=== PATIENT | male | born 1990 | race Caucasian/White ===

== ENCOUNTER 2017-03-01 03:19 | Emergency (ER) | payer MEDICARE, OTHER ==
[~2017-03-01] VITALS: Ht 177.8 cm; Wt 88.0 kg
[~2017-03-01 03:19] MED LIST: BACTDS PO; BEN25 PO; DICL75TA2 PO; DIPH-437 PO; EPIN0.3P4 INJ; HYDR-906 PO; IBUP-1542 PO; LISI10TA2 PO; PRED20TA PO
[2017-03-01 03:22] VITALS: Ht 177.8 cm; Wt 88.0 kg
[2017-03-01] MEDS ORDERED: QUET100T PO (06:22)
[2017-03-01] MEDS ORDERED: ATOM25CA3 PO (06:23)
[2017-03-01] MEDS ORDERED: GABA100C14 PO (06:24)
--- NOTE | 2017-03-01 06:45 | ERD ---
ER Documentation Chief Complaint Date/Time DATE: 03/01/17 TIME: 06:43 Chief Complaint med refill-seroquell HPI This is a 26-year-old male presents to the ER for medication refill. Patient states that he currently sees mental health however he has not been able to go in secondary to his work schedule. Patient states that he takes Seroquel, Strattera, gabapentin. Patient denies any suicidal ideations. He denies any homicidal ideations. Patient is asymptomatic otherwise. ROS 12 point review of systems was done, all negative except per HPI. Medications Home Meds Active Scripts Gabapentin* (Gabapentin*) 100 Mg Capsule, 100 MG PO BID, #60 CAP Prov:SHANAELEONOR C 03/01/17 Atomoxetine Hcl (Strattera) 25 Mg Capsule, 25 MG PO QHS, #15 CAP Prov:SHANAELEONOR C 03/01/17 Quetiapine Fumarate* (Seroquel*) 100 Mg Tablet, 100 MG PO QHS, #30 TAB Prov:XIAO JOLLYNA C 03/01/17 Sulfamethoxazole-Trimethoprim* (Bactrim* DS) 800-160 Mg Tab, 1 TAB PO BID for 5 Days, TAB Prov:TODD NUNEZ NP 10/13/16 Hydrocodone/Acetaminophen ([place] 5-325 Tablet) 1 Each Tablet, 1 TAB PO Q6H Y for PAIN, #20 TAB Prov:TODD NUNEZ NP 10/13/16 Ibuprofen* (Motrin*) 600 Mg Tab, 600 MG PO Q6H Y for PAIN AND OR ELEVATED TEMP, #30 TAB Prov:TODD NUNEZ NP 10/13/16 Diphenhydramine Hcl* (Benadryl*) 25 Mg Cap, 25 MG PO Q6, #30 CAP Prov:KAM LUIS MD 08/20/16 Prednisone* (Prednisone*) 20 Mg Tab, 60 MG PO DAILY for 4 Days, TAB Prov:KAM LUIS MD 08/20/16 Epinephrine (Epipen 2-Sam) 0.3 Mg/0.3 Ml Pen.injctr, 1 EA INJ ONCE Y for ALLERGIC REACTION, #1 EA Prov:KAM LUIS MD 08/20/16 Reported Medications Diphenhydramine Hcl* (Sleep Aid*) 25 Mg Tablet, 25 MG PO HS Y for SLEEP, TAB 08/20/16 Diclofenac Sodium* (Diclofenac Sodium*) 75 Mg Tablet.dr, 75 MG PO BID Y for PRN , #60 TAB 08/20/16 Lisinopril* (Lisinopril*) 10 Mg Tablet, 10 MG PO DAILY, #30 TAB 08/20/16 Allergies Allergies: Coded Allergies: phenobarbital (Verified Allergy, Intermediate, RASH, SWELLING, ANXIOUS, ) amoxicillin (Verified Allergy, Unknown, 08/20/16) Uncoded Allergies: all barbituates (Allergy, Intermediate, rashes/swelling, 12/17/13) PMhx/Soc History of Surgery: No Anesthesia Reaction: No Hx Neurological Disorder: No Hx Respiratory Disorders: No Hx Cardiac Disorders: No Hx Psychiatric Problems: Yes (DEPRESSION) Hx Miscellaneous Medical Probl: No Hx Alcohol Use: Yes (occasionally) Hx Substance Use: No Hx Tobacco Use: Yes (quit) Smoking Status: Light tobacco smoker Physical Exam Vitals Vital Signs Date Time Temp Pulse Resp B/P Pulse Ox O2 Delivery O2 Flow Rate FiO2 03/01/17 03:22 97.6 82 20 122/61 98 Physical Exam GENERAL: The patient is well developed and appropriate for usual state of health , in no apparent distress. HEENT: Atraumatic. CHEST: Clear to auscultation bilaterally. There are no rales, wheezes or rhonchi. HEART: Regular rate and rhythm. No murmurs, clicks, rubs or gallops. NEURO: Alert and oriented. SKIN: There is no apparent rash or petechia. The skin is warm and dry. Procedures/MDM This is a 26-year-old male presents to the ER for medication refill. At this time patient is asymptomatic otherwise. Patient does have a past medical history of bipolar disorder, depression, ADHD. At this time patient does not have any suicidal or homicidal ideations is extremely well-appearing. Patient is stable for outpatient follow-up. He needs to follow-up with his primary care doctor and see psych as soon as possible. My medical decision making was shared with the patient patient can return to ER sooner if symptoms worsen. Patient understands and agrees with plan. Departure Diagnosis: Primary Impression: Encounter for medication refill Condition: Stable Patient Instructions: Taking Medicine Safely Additional Instructions: Call your primary care doctor TOMORROW for an appointment during the next 1-2 days.See the doctor sooner or return here if your condition worsens before your appointment time. LEONOR JOLLY Mar 01, 2017 06:45
== END 2017-03-01 06:46 | disposition home or self-care (01) ==
LOC: FTE 03:19
DX: Z76.0 Encounter for issue of repeat prescription (principal); F17.210 Nicotine dependence, cigarettes, uncomplicated
CPT/HCPCS: 99281

== ENCOUNTER 2017-04-20 21:51 | Emergency (ER) | payer MEDICARE, OTHER ==
[~2017-04-20] VITALS: Ht 180.3 cm; Wt 85.5 kg
[~2017-04-20 21:51] MED LIST changes: +ATOM25CA3 PO; +GABA100C14 PO; +QUET100T PO
[2017-04-20 21:58] VITALS: Ht 180.3 cm; Wt 85.5 kg
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
--- NOTE | 2017-04-21 03:27 | RADRPT ---
PROCEDURE: Noncontrast CT Head. CLINICAL INDICATION: Trauma. TECHNIQUE: Noncontrast CT of the head was obtained. The administered radiation dose was CTDI vol = 45 mGy, DLP = 720 mGy-cm. COMPARISON: No pertinent prior examinations were submitted for comparison. FINDINGS: The ventricles and sulci are within normal limits. There is no acute intracranial hemorrhage or ext ra-axial fluid collection. There is no mass effect. No midline shift is identified. There is no loss of ambrosio-white differentiation to suggest acute infarction. The orbits are within normal limits. The paranasal sinuses and mastoid air cells are without fluid. No destructive osseous lesion is identified. IMPRESSION: No acute findings. RPTAT: HIKT .Miky Spann MD, MD Date Time Electronically viewed and signed by .Miky Spann MD, on 04/21/2017 03:26 .T/
[2017-04-21] MEDS ORDERED: CARI350T PO (03:44)
[2017-04-21] MEDS ORDERED: HYDR-906 PO (03:44)
[2017-04-21 04:29] VITALS: BP 135/86; PULSE 62; RESP 16
== END 2017-04-21 04:23 | disposition home or self-care (01) ==
LOC: FTE 21:51
DX: S00.01XA Abrasion of scalp, initial encounter (principal); S06.0X1A Concussion with loss of consciousness of 30 minutes or less, initial encounter; Y08.89XA Assault by other specified means, initial encounter; Z87.891 Personal history of nicotine dependence
CPT/HCPCS: 70450

== ENCOUNTER 2017-06-27 18:37 | Emergency (ER) | payer MEDICARE, OTHER ==
[~2017-06-27] VITALS: Ht 177.8 cm; Wt 85.0 kg
[~2017-06-27 18:37] MED LIST changes: +CARI350T PO
[2017-06-27 18:43] VITALS: Ht 177.8 cm; Wt 85.0 kg
[2017-06-27] MEDS ORDERED: LORAZEPAM 2 MG INJ IM ONE (19:00)
[2017-06-27] MEDS ORDERED: HALOPERIDOL 5 MG INJ IM ONE (19:00)
[2017-06-27 19:22] LABS: BASOPHILS % 0.5 % (0.0-2.0); EOSINOPHILS # 0.4 10^3/ul (0.0-0.5); EOSINOPHILS % 5.8 % (0.0-7.0); HEMATOCRIT 41.2 % (42.0-52.0); HEMOGLOBIN 14.8 g/dl (14.0-18.0); LYMPHOCYTES # 1.7 10^3/ul (0.8-2.9); LYMPHOCYTES % 21.9 % (15.0-51.0); MEAN CORPUSCULAR HEMOGLOBIN 30.8 pg (29.0-33.0); MEAN CORPUSCULAR HGB CONC 35.9 g/dl (32.0-37.0); MEAN CORPUSCULAR VOLUME 85.7 fl (82.0-101.0); MEAN PLATELET VOLUME 9.7 fl (7.4-10.4); MONOCYTE # 0.6 10^3/ul (0.3-0.9); MONOCYTES % 7.5 % (0.0-11.0); NEUTROPHIL # 4.8 10^3/ul (1.6-7.5); NEUTROPHILS % 63.8 % (39.0-77.0); PLATELET COUNT 293 10^3/UL (140-415); RED BLOOD COUNT 4.81 10^6/ul (4.70-6.10); RED CELL DISTRIBUTION WIDTH 11.8 % (11.5-14.5); WHITE BLOOD COUNT 7.6 10^3/ul (4.8-10.8)
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
[2017-06-27 19:46] LABS: ALANINE AMINOTRANSFERASE 52 IU/L (13-69); ALBUMIN 4.7 g/dl (3.3-4.9); ALBUMIN/GLOBULIN RATIO 1.42; ALKALINE PHOSPHATASE 84 IU/L (42-121); ANION GAP 23 (8-16); ASPARTATE AMINO TRANSFERASE 52 IU/L (15-46); BILIRUBIN,INDIRECT 0.5 mg/dl (0-1.1); BILIRUBIN,TOTAL 0.5 mg/dl (0.2-1.3); BLOOD UREA NITROGEN 11 mg/dl (7-20); CALCIUM 9.5 mg/dl (8.4-10.2); CARBON DIOXIDE 23 mmol/L (21-31); CHLORIDE 104 mmol/L (97-110); CREATININE 1.14 mg/dl (0.61-1.24); GLUCOSE 89 mg/dl (70-220); POTASSIUM 3.5 mmol/L (3.5-5.1); SODIUM 146 mmol/L (135-144)
[2017-06-27 19:54] LABS: ACETAMINOPHEN < 10.0 ug/ml (10.0-30.0); SALICYLATE < 1.0 mg/dl (5.0-30.0)
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
[2017-06-28 01:00] VITALS: BP 134/74; PULSE 74; RESP 16; TEMP 98.4
== END 2017-06-28 01:00 ==
LOC: E/R 18:37
DX: F29 Unspecified psychosis not due to a substance or known physiological condition (principal); S00.81XA Abrasion of other part of head, initial encounter; S60.511A Abrasion of right hand, initial encounter; S60.512A Abrasion of left hand, initial encounter; F17.210 Nicotine dependence, cigarettes, uncomplicated; X78.1XXA Intentional self-harm by knife, initial encounter; Y92.9 Unspecified place or not applicable
CPT/HCPCS: 80053; 80178; 80306; 85025; 96372; 99291; J1630; J2060

== ENCOUNTER 2017-11-04 03:21 | Emergency (ER) | payer MEDICARE, OTHER ==
[~2017-11-04] VITALS: Ht 180.3 cm; Wt 82.2 kg
[2017-11-04 03:26] VITALS: Ht 180.3 cm; Wt 82.2 kg
[2017-11-04 03:41] VITALS: BP 99/61; PULSE 90; RESP 19; TEMP 97.9
[2017-11-04 04:24] LABS: BASOPHIL # 0.1 10^3/ul (0.0-0.1); BASOPHILS % 0.8 % (0.0-2.0); EOSINOPHILS # 0.8 10^3/ul (0.0-0.5); EOSINOPHILS % 12.7 % (0.0-7.0); HEMATOCRIT 36.8 % (42.0-52.0); HEMOGLOBIN 13.3 g/dl (14.0-18.0); LYMPHOCYTES # 2.3 10^3/ul (0.8-2.9); MEAN CORPUSCULAR HEMOGLOBIN 31.4 pg (29.0-33.0); MEAN CORPUSCULAR HGB CONC 36.1 g/dl (32.0-37.0); MEAN PLATELET VOLUME 9.7 fl (7.4-10.4); MONOCYTE # 0.8 10^3/ul (0.3-0.9); MONOCYTES % 11.5 % (0.0-11.0); NEUTROPHIL # 2.6 10^3/ul (1.6-7.5); NEUTROPHILS % 39.5 % (39.0-77.0); PLATELET COUNT 293 10^3/UL (140-415); RED BLOOD COUNT 4.23 10^6/ul (4.70-6.10); RED CELL DISTRIBUTION WIDTH 12.2 % (11.5-14.5); WHITE BLOOD COUNT 6.5 10^3/ul (4.8-10.8)
[2017-11-04 04:52] LABS: ALBUMIN 3.2 g/dl (3.3-4.9); ALBUMIN/GLOBULIN RATIO 1.03; BILIRUBIN,INDIRECT 0.3 mg/dl (0-1.1); BILIRUBIN,TOTAL 0.3 mg/dl (0.2-1.3); CALCIUM 8.6 mg/dl (8.4-10.2); CREATININE 0.97 mg/dl (0.61-1.24); POTASSIUM 3.6 mmol/L (3.5-5.1); TOTAL PROTEIN 6.3 g/dl (6.1-8.1)
--- NOTE | 2017-11-04 05:36 | ERD ---
ER Documentation Chief Complaint Chief Complaint seizure, witnessed per pt. cough and SOB r/t smoke HPI This is a 27-year-old male who said he had a seizure earlier today she is coughing so much from the smoke in the air. Patient has history of psychosis. He denies auditory visual hallucinations. Denies tongue biting or colitis. Denies suicidal or homicidal ideation. Patient said that seizure was 5 seconds long, tonic-clonic with no tongue biting or incontinence ROS All systems reviewed and are negative except as per history of present illness. Medications Home Meds Active Scripts Carisoprodol* (Soma*) 350 Mg Tablet, 350 MG PO TID Y for MUSCLE SPASMS, #15 TAB Prov:TODD NUNEZ NP 04/21/17 Hydrocodone/Acetaminophen ([place] 5-325 Tablet) 1 Each Tablet, 1 TAB PO Q6H Y for SEVERE PAIN LEVEL 7-10, #15 TAB Prov:TODD NUNEZ NP 04/21/17 Gabapentin* (Gabapentin*) 100 Mg Capsule, 100 MG PO BID, #60 CAP Prov:LEONOR JOLLY 03/01/17 Atomoxetine Hcl (Strattera) 25 Mg Capsule, 25 MG PO QHS, #15 CAP Prov:SHANAELEONOR ADAMS 17 Quetiapine Fumarate* (Seroquel*) 100 Mg Tablet, 100 MG PO QHS, #30 TAB Prov:LEONOR JOLLY 03/01/17 Sulfamethoxazole-Trimethoprim* (Bactrim* DS) 800-160 Mg Tab, 1 TAB PO BID for 5 Days, TAB Prov:TODD NUNEZ NP 10/13/16 Hydrocodone/Acetaminophen ([place] 5-325 Tablet) 1 Each Tablet, 1 TAB PO Q6H Y for PAIN, #20 TAB Prov:TODD NUNEZ NP 10/13/16 Ibuprofen* (Motrin*) 600 Mg Tab, 600 MG PO Q6H Y for PAIN AND OR ELEVATED TEMP, #30 TAB Prov:TODD NUNEZ NP 10/13/16 Diphenhydramine Hcl* (Benadryl*) 25 Mg Cap, 25 MG PO Q6, #30 CAP Prov:KAM LUIS MD 08/20/16 Prednisone* (Prednisone*) 20 Mg Tab, 60 MG PO DAILY for 4 Days, TAB Prov:KAM LUIS MD 08/20/16 Epinephrine (Epipen 2-Sam) 0.3 Mg/0.3 Ml Pen.injctr, 1 EA INJ ONCE Y for ALLERGIC REACTION, #1 EA Prov:KAM LUIS MD 08/20/16 Reported Medications Diphenhydramine Hcl* (Sleep Aid*) 25 Mg Tablet, 25 MG PO HS Y for SLEEP, TAB 08/20/16 Diclofenac Sodium* (Diclofenac Sodium*) 75 Mg Tablet.dr, 75 MG PO BID Y for PRN , #60 TAB 08/20/16 Lisinopril* (Lisinopril*) 10 Mg Tablet, 10 MG PO DAILY, #30 TAB 08/20/16 Allergies Allergies: Coded Allergies: phenobarbital (Verified Allergy, Intermediate, RASH, SWELLING, ANXIOUS, ) amoxicillin (Verified Allergy, Unknown, 11/04/17) Uncoded Allergies: all barbituates (Allergy, Intermediate, rashes/swelling, 12/17/13) PMhx/Soc Medical and Surgical Hx: pt denies Medical Hx, pt denies Surgical Hx History of Surgery: No Anesthesia Reaction: No Hx Neurological Disorder: No Hx Respiratory Disorders: No Hx Cardiac Disorders: No Hx Psychiatric Problems: Yes (DEPRESSION, SI, HI, ADHD) Hx Miscellaneous Medical Probl: No Hx Alcohol Use: Yes (occasionally) Hx Substance Use: No Hx Tobacco Use: Yes (quit) Smoking Status: Never smoker Physical Exam Vitals Vital Signs Date Time Temp Pulse Resp B/P Pulse Ox O2 Delivery O2 Flow Rate FiO2 11/04/17 03:41 97.9 90 19 99/61 98 Room Air 11/04/17 03:26 97.9 89 18 139/63 98 Physical Exam Const: [] Head: Atraumatic Eyes: Normal Conjunctiva ENT: Normal External Ears, Nose and Mouth. Neck: Full range of motion..~ No meningismus. Resp: Clear to auscultation bilaterally Cardio: Regular rate and rhythm, no murmurs Abd: Soft, non tender, non distended. Normal bowel sounds Skin: No petechiae or rashes Back: No midline or flank tenderness Ext: No cyanosis, or edema Neur: Awake and alert Psych: Normal Mood and Affect Result Diagram: 11/04/17 0402 11/04/17 0402 Results 24 hrs Laboratory Tests Test 11/04/17 04:02 White Blood Count 6.510^3/ul Red Blood Count 4.2310^6/ul Hemoglobin 13.3g/dl Hematocrit 36.8% Mean Corpuscular Volume 87.0fl Mean Corpuscular Hemoglobin 31.4pg Mean Corpuscular Hemoglobin Concent 36.1g/dl Red Cell Distribution Width 12.2% Platelet Count 32228^3/UL Mean Platelet Volume 9.7fl Neutrophils % 39.5% Lymphocytes % 35.0% Monocytes % 11.5% Eosinophils % 12.7% Basophils % 0.8% Nucleated Red Blood Cells % 0.0/100WBC Neutrophils # 2.610^3/ul Lymphocytes # 2.310^3/ul Monocytes # 0.810^3/ul Eosinophils # 0.810^3/ul Basophils # 0.110^3/ul Nucleated Red Blood Cells # 0.010^3/ul Sodium Level 142mmol/L Potassium Level 3.6mmol/L Chloride Level 105mmol/L Carbon Dioxide Level 30mmol/L Anion Gap 11 Blood Urea Nitrogen 22mg/dl Creatinine 0.97mg/dl Glucose Level 108mg/dl Calcium Level 8.6mg/dl Total Bilirubin 0.3mg/dl Direct Bilirubin 0.00mg/dl Indirect Bilirubin 0.3mg/dl Aspartate Amino Transf (AST/SGOT) 53IU/L Alanine Aminotransferase (ALT/SGPT) 49IU/L Alkaline Phosphatase 92IU/L Total Protein 6.3g/dl Albumin 3.2g/dl Globulin 3.10g/dl Albumin/Globulin Ratio 1.03 Procedures/MDM Medical decision-making: Patient here with complaint of seizure. No evidence of seizure on exam. At this point clinically stable for outpatient management. Patient will be discharged home. Departure Diagnosis: Primary Impression: Seizure disorder Condition: Stable KARY NIETO Nov 04, 2017 05:36
== END 2017-11-04 06:01 | disposition home or self-care (01) ==
LOC: E/R 03:21
DX: G40.909 Epilepsy, unspecified, not intractable, without status epilepticus (principal); Z87.891 Personal history of nicotine dependence
CPT/HCPCS: 80053; 85025; Z7502; 99283